=== PATIENT | female | born 1955 | race Caucasian/White ===

== ENCOUNTER → 2018-07-14 11:47 | Outpatient (CLI) | payer OTHER, SELFPAY | DX: Z23 Encounter for immunization (principal) | CPT/HCPCS: 90471; 90686 ==

== ENCOUNTER → 2018-09-26 07:36 | Outpatient (CLI) | payer OTHER, SELFPAY ==
--- NOTE | 2018-09-26 | DI.MG.S_ITS ---
BILATERAL DIGITAL SCREENING MAMMOGRAM 3D/2D WITH CAD: 09/26/2018 CLINICAL: Routine screening. Family history of breast cancer. Comparison is made to exams dated: 08/27/2017 mammogram, 05/18/2016 mammogram, and 10/29/2014 mammogram - [facility]. The tissue of both breasts is heterogeneously dense. This may lower the sensitivity of mammography. Current study was also evaluated with a Computer Aided Detection (CAD) system. There are benign vascular calcifications in both breasts. No significant masses, calcifications, or other findings are seen in either breast. There has been no significant interval change. IMPRESSION: There is no mammographic evidence of malignancy. A 1 year screening mammogram is recommended. This exam was interpreted at Station ID: [id number]. NOTE: For mammograms, a report in lay terms will be sent to the patient. Approximately 15% of breast malignancies will not be visualized mammographically. In the management of a palpable breast mass, a negative mammogram must not discourage biopsy of a clinically suspicious lesion. Electronically Signed By: Shan nelson/yolette:09/26/2018 12:00:12 letter sent: Normal Exam ACR BI-RADS Category 2: Benign Finding(s) 3342F
== END ==
PROVIDERS: PCP Family Medicine; Visit Provider Family Medicine
DX: Z12.31 Encounter for screening mammogram for malignant neoplasm of breast (principal); Z80.3 Family history of malignant neoplasm of breast
CPT/HCPCS: 77063; 77067

== ENCOUNTER → 2018-10-24 10:55 | Outpatient (CLI) | payer OTHER, SELFPAY ==
[2018-10-24 11:40] LABS: Add Manual Diff / Slide Review NO; Basophils Absolute Auto 100 /uL (0-100); Basophils Percent Auto 2.4 % (0-2); Eosinophils Absolute Auto 100 /uL (0-450); Eosinophils Percent Auto 2.4 % (2-4); Hematocrit 39.1 % (36-46); Hemoglobin 13.2 g/dL (12.0-16.0); Lymphocytes Absolute Auto 1700 /uL (1100-4500); Lymphocytes Percent Auto 35.8 % (25-40); Mean Corpuscular HGB Conc 33.8 % (30-36); Mean Corpuscular Hemoglobin 32.2 PG (26-34); Mean Corpuscular Volume 95.2 fL (80-100); Monocytes Absolute Auto 400 /uL (0-900); Monocytes Percent Auto 9.3 % (3-14); Neutrophils Absolute Auto 2300 /uL (1500-7000); Neutrophils Percent Auto 50.1 % (50-75); Platelet Count 303 X10^3/uL (150-400); Red Blood Cell Count 4.11 X10^6/uL (4.0-5.2); Red Cell Distribution Width 13.2 % (11.6-14.8); White Blood Cell Count 4.7 X10^3/uL (4.5-11.0)
[2018-10-24 11:55] LABS: Erythrocyte Sedimentation Rate 11 MM/HR (0-20)
[2018-10-24 11:57] LABS: Alanine Aminotransferase 30 IU/L (9-52); Albumin 4.4 g/dL (3.5-5.0); Albumin Globulin Ratio 1.4 (1.0-2.8); Alkaline Phosphatase 42 U/L (38-126); Aspartate Aminotransferase 26 IU/L (14-36); BUN Creatinine Ratio 22.5 (6-22); Bilirubin Total 0.6 mg/dL (0.2-1.3); Blood Urea Nitrogen 18 mg/dL (7-17); Calcium 9.2 mg/dL (8.4-10.2); Carbon Dioxide 28 mmol/L (22-32); Chloride 102 mmol/L (98-107); Cholesterol 249 mg/dL (140-199); Estimated Glomerular Filt Rate > 60.0 mL/min (>60); Globulin 3.1 g/dL (1.7-4.1); Glucose 83 mg/dL (80-110); HDL Cholesterol 69 mg/dL (40-60); HEMOLYSIS < 15 (0-50); LDL Cholesterol Calculated 166 mg/dL (<100); Potassium 4.3 mmol/L (3.4-5.1); Sodium 138 mmol/L (137-145); Total Protein 7.5 g/dL (6.3-8.2); Triglycerides 70 mg/dL (35-150)
[2018-10-24 12:05] LABS: Rheumatoid Factor < 8.6 IU/mL (<12.0)
--- NOTE | 2018-10-24 14:28 | DI.MRI.S_ITS ---
PROCEDURE: MR HEAD/BRAIN WO/W CON INDICATIONS: Right-sided facial weakness TECHNIQUE: Noncontrast sagittal T1 spin echo, axial T2 fast spin echo, axial FLAIR, axial gradient echo, axial diffusion and ADC through the brain. Axial/sagittal/coronal 3-D CISS, thin-slice axial T1 spin echo with fat saturation through the skull base. After the administration of contrast, axial and coronal thin-slice T1 spin echo with fat saturation through the skull base, axial T1 spin echo with fat saturation through the brain. COMPARISON: None. FINDINGS: Image quality: Excellent. CSF spaces: Ventricles are normal in size and shape. No extra-axial fluid collections. Basal cisterns are patent. Brain: No intracranial bleeds or mass effects. There is subtle although asymmetric enhancement seen in the region of the distal intra-meatal right facial nerve extending to the level of the geniculate ganglion however seen on thin section contrast-enhanced pulse sequences only. Scattered small white matter signal changes, probably represent chronic microvascular ischemic disease, versus statistically less likely demyelination or other infectious, inflammatory, neurodegenerative etiology, technically nonspecific. No abnormal intracranial enhancement. Diffusion weighted images show no acute ischemic insults. Carranza-white matter interface is intact. Brainstem is normal. Normal intravascular flow voids are present. Skull and face: Calvarial marrow signal is normal. Orbits appear normal. Sinuses: Sinuses and mastoids appear clear. IMPRESSION: Asymmetric enhancement in the region of the intra-meatal right facial nerve and extending to the geniculate ganglion, which could reflect Irwin's palsy although clinical correlation is recommended. Diffuse small white matter signal changes, probably represent chronic microvascular ischemic disease, versus statistically less likely demyelination or other infectious, inflammatory, neurodegenerative etiology, technically nonspecific. Dictated by: Sunil Davis M.D. on 10/24/2018 at 16:21 Approved by: Sunil Davis M.D. on 10/24/2018 at 16:43
[2018-10-26 12:12] LABS: RPR Screen Nonreactive (Nonreactive)
[2018-10-26 22:07] LABS: ANA Screen, IFA Negative (Negative)
[2018-10-27 13:42] LABS: Angiotensin Converting Enzyme 59 U/L (9-67)
[2018-10-27 17:00] LABS: 18 kD IgG Band Nonreactive; 23 kD IgG Band Nonreactive; 28 kD IgG Band Nonreactive; 30 kD IgG Band Reactive; 39 kD IgG Band Nonreactive; 41 kD IgG Bands Reactive; 45 kD IgG Band Nonreactive; 58 kD IgG Band Nonreactive; 66 kD IgG Band Nonreactive; 93 kD IgG Bands Nonreactive
[2018-10-27 20:08] LABS: Lysozyme (Muramidase) 4.4 mcg/mL (5.0-11.0)
[2018-10-28 16:56] LABS: EBV Virus IgM Ab < 36.00 U/mL (< 36.00)
[2018-10-30 19:32] LABS: ANCA Screen Negative (Negative)
== END ==
PROVIDERS: Ophthalmology; PCP Family Medicine; Visit Provider Family Medicine
DX: Z01.812 Encounter for preprocedural laboratory examination (principal); R29.810 Facial weakness
CPT/HCPCS: 36415; 70553; 80053; 80061; 82164; 85025; 85549; 85651; 86021; 86038; 86430; 86592; 86618; 86663; 86664; 86665; 86695; 86696

== ENCOUNTER → 2019-07-29 16:52 | Outpatient (CLI) | payer OTHER, SELFPAY | PROVIDERS: PCP Family Medicine | DX: Z23 Encounter for immunization (principal) | CPT/HCPCS: 90471; 90686 ==

== ENCOUNTER → 2019-09-29 11:02 | Outpatient (CLI) | payer OTHER, SELFPAY ==
--- NOTE | 2019-09-29 | DI.MG.S_ITS ---
BILATERAL DIGITAL SCREENING MAMMOGRAM 3D/2D WITH CAD: 09/29/2019 CLINICAL: Routine screening. Family history of breast cancer. Comparison is made to exams dated: 09/26/2018 mammogram, 08/27/2017 mammogram, and 05/18/2016 mammogram - [facility]. The tissue of both breasts is heterogeneously dense. This may lower the sensitivity of mammography. Current study was also evaluated with a Computer Aided Detection (CAD) system. There are benign vascular calcifications in both breasts. No significant masses, calcifications, or other findings are seen in either breast. There has been no significant interval change. IMPRESSION: There is no mammographic evidence of malignancy. A 1 year screening mammogram is recommended. This exam was interpreted at Station ID: [id number]. NOTE: For mammograms, a report in lay terms will be sent to the patient. Approximately 15% of breast malignancies will not be visualized mammographically. In the management of a palpable breast mass, a negative mammogram must not discourage biopsy of a clinically suspicious lesion. Electronically Signed By: Derrick santoyo/yolette:09/29/2019 14:51:45 letter sent: Normal Exam ACR BI-RADS Category 2: Benign Finding(s) 3342F
== END ==
PROVIDERS: PCP Family Medicine; Visit Provider Family Medicine
DX: Z12.31 Encounter for screening mammogram for malignant neoplasm of breast (principal); Z80.3 Family history of malignant neoplasm of breast
CPT/HCPCS: 77063; 77067

== ENCOUNTER 2020-02-17 07:31 | Emergency (ER) | payer OTHER, SELFPAY ==
--- NOTE | 2020-02-17 07:37 | ED_ITS ---
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 Patient denies any fevers, no shortness of breath or chest pain. Denies any current medical issues. Related Data Allergies Allergy/AdvReac Type Severity Reaction Status Date / Time No Known Drug Allergies Allergy Verified 02/17/20 07:41 Review of Systems Review of Systems ROS Unobtainable: All systems reviewed & are unremarkable except as noted in HPI and below Patient History Surgical History (Updated 02/04/18 @ 06:00 by Conversion Provider) Status post delivery Social History Smoking Status: Never smoker Smoking Status: Never smoker Exam Narrative Exam Narrative: GENERAL: Alert and oriented x three, well-nourished female in no acute distress HEENT: Head normocephalic, atraumatic, EOMI, pupils reactive, face symmetric. NECK: Supple, full range of motion CARDIOVASCULAR: Regular rate and rhythm without murmurs, rubs or gallops. RESPIRATORY: Breath sounds equal bilaterally, no wheezes rales or rhonchi. EXTREMITIES: Normal gait. NEUROLOGICAL: Cranial nerves II through XII grossly intact. Moving all extremities SKIN: Warm, dry, no petechiae, no rashes or lesions. Initial Vital Signs Initial Vital Signs: Vital Signs Temperature 97.6 F 02/17/20 07:39 Pulse Rate 64 02/17/20 07:39 Respiratory Rate 16 02/17/20 07:39 Blood Pressure 126/70 02/17/20 07:39 Pulse Oximetry 97 02/17/20 07:39 Course Vital Signs Vital signs: Vital Signs - 8 hr 02/17/20 07:39 Temperature 97.6 F Pulse Rate 64 Respiratory Rate 16 Blood Pressure 126/70 Pulse Oximetry 97 Medical Decision Making Lab Data Labs: Lab Results 02/17/20 Range/Units 07:45 COVID-19 PCR Negative (Negative) MDM Narrative Medical decision making narrative: rapid covid testing sent. Patient elects to wait in vehicle. Patient updated on findings. covid swab is negative. Discharge Plan Departure Patient Disposition: Home Clinical Impression: Cough Instructions: DI for COVID-19 (Suspected or Confirmed ) Activity Restrictions/Additional Instructions: *You have been diagnosed with suspicious for coronavirus *What to do: * per recommendations from the CDC and the [facility] Department of Health * stay home except to get medical care. Restrict activities outside your home, except for getting medical care. Do not go to work, school, or public areas. Avoid using public transportation, ride sharing, or taxis. * separate yourself from other people in your home. * call ahead before visiting your doctor * Wear a face mask * Cover your coughs and sneezes * Clean your hands often * Avoid sharing household items * Clean all high-touch services every day * Monitor your symptoms and seek prompt medical attention if your illness is worsening, particularly with difficulty in breathing. Discussed continuing home isolation * for individuals with symptoms who are confirmed or suspected cases of COVID-19 and are directed to care for themselves at home, discontinue home is olation under the following conditions: 1. At least 72 hours have passed since recovery, defined as resolution of fever without the use of fever reducing medications, and improvement in respiratory symptoms (cough, shortness of breath) AND, 2. At least 7 days have passed since symptoms 1st appeared Individuals with laboratory confirmed COVID-19 who have not had any symptoms may discontinue home isolation when at least 7 days have passed since the date of their 1st COVID-19 diagnostic test and have had no subsequent illness Referrals: Sandra Hassan MD [Primary Care Provider] -
[2020-02-17 07:39] VITALS: BP 126/70; PULSE 64; RESP 16; TEMP 36.4; O2SAT 97
--- NOTE | 2020-02-17 07:48 | PC.NURSE ---
Patient reports waking with a cough. Denies fevers, chills or SOB. Patient states normally she would take sudafed and carry on with her day but concerns of COVID19.
[2020-02-17 08:51] LABS: COVID19 -Nasal RAPID Negative (Negative)
== END 2020-02-17 09:02 | disposition home or self-care (01) ==
PROVIDERS: Emergency Provider Emergency Medicine; PCP Family Medicine
DX: Z03.818 Encounter for observation for suspected exposure to other biological agents ruled out (principal); R05 Cough
CPT/HCPCS: 87635; 99281; 99282

== ENCOUNTER 2020-07-04 12:32 | Emergency (ER) | payer OTHER, SELFPAY ==
[2020-07-04 12:33] VITALS: BP 112/76; PULSE 80; RESP 16; O2SAT 100
--- NOTE | 2020-07-04 12:54 | PC.NURSE ---
The patient was suturing a patient's skin and made a pass through the patience's skin and stuck herself with a contaminated needle through a clean glove. She was using a non-cannulated taper suture needle.
--- NOTE | 2020-07-04 12:55 | ED.GENADULT ---
HPI - General Adult General Chief complaint: Blood/Body fluid exposure Stated complaint: needle stick Time Seen by Provider: 07/04/20 12:36 Source: patient Mode of arrival: Ambulatory Limitations: no limitations History of Present Illness HPI narrative: Patient is a 64-year-old female who presents with a needlestick to the right thumb. She was suturing a patient. Immunizations are up-to-date Onset (ago): hour(s) Related Data Home Medications Medication Instructions Recorded Confirmed No Known Home Medications 06/07/20 06/07/20 Allergies Allergy/AdvReac Type Severity Reaction Status Date / Time No Known Drug Allergies Allergy Verified 07/04/20 12:35 Review of Systems Review of Systems Narrative: GENERAL: Denies chills,fever HEENT: Denies throat pain RESPIRATORY: Denies dyspnea, cough, wheezing CARDIOVASCULAR: Denies chest pain, palpitations GASTROINTESTINAL: Denies nausea, vomiting MUSCULOSKELETAL: Denies extremity pain, injury SKIN: See HPI NEUROLOGIC: Denies weakness, dizziness, headache, numbness 8 point review of systems is negative except for those stated above and HPI Patient History Medical History Acute right-sided thoracic back pain (Acute) Cervical somatic dysfunction (Acute) Chronic right-sided low back pain without sciatica (Acute) Cranial somatic dysfunction (Acute) Lumbar region somatic dysfunction (Acute) Pelvic somatic dysfunction (Acute) Rib pain on right side (Acute) Sacral region somatic dysfunction (Acute) Segmental and somatic dysfunction of abdomen and other regions (Acute) Segmental and somatic dysfunction of rib cage (Acute) Thoracic region somatic dysfunction (Acute) Surgical History Status post delivery Social History Smoking Status: Never smoker Smoking Status: Never smoker alcohol intake frequency: a few times a month Substance Use Type: does not use Exam Initial Vital Signs Initial Vital Signs: Vital Signs Pulse Rate 80 07/04/20 12:33 Respiratory Rate 16 07/04/20 12:33 Blood Pressure 112/76 07/04/20 12:33 Pulse Oximetry 100 07/04/20 12:33 GENERAL: Well-appearing, well-nourished and in no acute distress. CARDIOVASCULAR: peripheral pulses in tact, cap refill <2 sec RESPIRATORY: No respiratory distress, speaks in full sentences without difficulty EXTREMITIES: Normal range of motion, no clubbing or edema. Neurovascularly intact NEUROLOGICAL: Cranial nerves II through XII grossly intact. Normal gait and speech. SKIN: Warm, dry, no petechiae, no rashes or lesions. No puncture wound noted Course Vital Signs Vital signs: Vital Signs - 8 hr 07/04/20 12:33 Pulse Rate 80 Respiratory Rate 16 Blood Pressure 112/76 Pulse Oximetry 100 Medical Decision Making Lab Data Lab results reviewed: Yes I reviewed the patient's lab results. Labs: Lab Results 07/04/20 07/04/20 Range/Units 12:45 12:45 ALT 14 (<35) IU/L Hep Bs Antigen Negative (NEGATIVE) s/c Hepatitis C Antibody Negative (NEGATIVE) s/c HIV 1&2 Ab/P24 Ag 4thGn Negative (NEGATIVE) Discharge Plan Departure Patient Disposition: Home Clinical Impression: Needle stick injury of finger Discharge Date/Time: 07/04/20 12:57 Instructions: DI for Accidental Exposure to Body Fluids Activity Restrictions/Additional Instructions: *YOU HAVE BEEN DIAGNOSED WITH needlestick *CONTINUE TO TAKE MEDICATIONS DIRECTED *FOLLOW UP WITH YOUR PRIMARY CARE PROVIDER IN 2-3 DAYS *RETURN TO ER IF YOU SHOULD HAVE ANY NEW, WORSENING OR CONCERNING SYMPTOMS Prescriptions: No Action No Known Home Medications RF: 0 Referrals: Sandra Hassan MD [Primary Care Provider] -
[2020-07-04 13:00] LABS: Alanine Aminotransferase 14 IU/L (<35)
[2020-07-04 15:51] LABS: Hepatitis B Surface Antigen NEGATIVE s/c (NEGATIVE)
[2020-07-04 16:08] LABS: HIV 1 & 2 Ab/Ag 4th Gen Combo NEGATIVE (NEGATIVE); Hep C Virus Ab w/Reflex Quant NEGATIVE s/c (NEGATIVE)
[2020-07-05 07:39] LABS: Hepatitis B Surf Ab Qualitativ Reactive (.)
== END 2020-07-04 12:57 | disposition home or self-care (01) ==
PROVIDERS: Emergency Provider Emergency Medicine; PCP Family Medicine
DX: S61.031A Puncture wound without foreign body of right thumb without damage to nail, initial encounter (principal); W46.0XXA Contact with hypodermic needle, initial encounter; Y99.0 Civilian activity done for income or pay
CPT/HCPCS: 99281

== ENCOUNTER → 2020-08-04 04:26 | Outpatient (CLI) | payer OTHER, SELFPAY | PROVIDERS: PCP Family Medicine; Referring Provider Internal Medicine; Visit Provider Internal Medicine | DX: Z23 Encounter for immunization (principal) | CPT/HCPCS: 90471; 90686 ==

== ENCOUNTER → 2020-10-14 13:30 | Outpatient (CLI) | payer OTHER, SELFPAY ==
[2020-10-14] MEDS: COVID-19 VACC(MODERNA-1)/PF 100 MCG/0.5 ML VIAL IM (13:40)
== END ==
PROVIDERS: PCP Family Medicine; Visit Provider Internal Medicine
DX: Z23 Encounter for immunization (principal)
CPT/HCPCS: 0011A; 91301

== ENCOUNTER → 2020-10-27 17:47 | Outpatient (CLI) | payer OTHER, SELFPAY ==
--- NOTE | 2020-10-27 17:48 | DI.MG.S_ITS ---
BILATERAL DIGITAL SCREENING MAMMOGRAM 3D/2D WITH CAD: 10/27/2020 CLINICAL: Routine screening. Family history of breast cancer. Comparison is made to exams dated: 09/29/2019 mammogram, 09/26/2018 mammogram, and 08/27/2017 mammogram - [facility]. The tissue of both breasts is heterogeneously dense. This may lower the sensitivity of mammography. Current study was also evaluated with a Computer Aided Detection (CAD) system. There are benign vascular calcifications in both breasts. No significant masses, calcifications, or other findings are seen in either breast. There has been no significant interval change. IMPRESSION: BENIGN There is no mammographic evidence of malignancy. A 1 year screening mammogram is recommended. This exam was interpreted at Station ID: [id number]. NOTE: For mammograms, a report in lay terms will be sent to the patient. Approximately 15% of breast malignancies will not be visualized mammographically. In the management of a palpable breast mass, a negative mammogram must not discourage biopsy of a clinically suspicious lesion. Electronically Signed By: Derrick santoyo/yolette:10/28/2020 08:33:40 letter sent: Normal Exam ACR BI-RADS Category 2: Benign Finding(s) 3342F
== END ==
PROVIDERS: PCP Family Medicine; Referring Provider Family Medicine; Visit Provider Family Medicine
DX: Z12.31 Encounter for screening mammogram for malignant neoplasm of breast (principal); Z80.3 Family history of malignant neoplasm of breast
CPT/HCPCS: 77063; 77067

== ENCOUNTER → 2020-11-10 16:37 | Outpatient (CLI) | payer OTHER, SELFPAY ==
[2020-11-10] MEDS: COVID-19 VACC #2, MRNA(MOD) 100 MCG/0.5 ML VIAL IM (16:46)
== END ==
PROVIDERS: PCP Family Medicine; Visit Provider Internal Medicine
DX: Z23 Encounter for immunization (principal)
CPT/HCPCS: 0012A; 91301

== ENCOUNTER → 2021-07-21 | Outpatient (CLI) | payer OTHER, SELFPAY | PROVIDERS: PCP Family Medicine; Referring Provider Internal Medicine; Visit Provider Internal Medicine | DX: Z23 Encounter for immunization (principal) | CPT/HCPCS: 90471; 90662 ==

== ENCOUNTER → 2021-08-11 12:59 | Outpatient (CLI) | payer OTHER, SELFPAY ==
[2021-08-11] MEDS: COVID-19 VACC #3, MRNA(MOD) 50 MCG/0.25 ML VIAL IM (13:04)
== END ==
PROVIDERS: PCP Family Medicine; Visit Provider Internal Medicine
DX: Z23 Encounter for immunization (principal)
CPT/HCPCS: 0013A; 91301

== ENCOUNTER → 2021-09-20 08:03 | Outpatient (CLI) | payer OTHER, SELFPAY ==
--- NOTE | 2021-10-09 08:46 | PM.CARDMON.1 ---
Adjunct Physical Education Instructor Report Referral & Results Date Patient Seen: 09/20/21 Requesting provider: Sandra Hassan Indication: Palpitations Duration of monitoring (days): 7 Diary information: There were 6 patient triggered events and 0 patient diary entries Patient triggered events were associated variably with sinus rhythm, PACs, PVCs, ventricular bigeminy and SVT Data: Minimum heart rate identified was 44 beats per minute at 22:49 on 09/25/2021 Maximum sinus heart rate was 154 beats per minute at 16:11 on 09/23/2021 Maximum overall heart rate was 182 beats per minute at 07:44 on 09/25/2021 during a run of SVT There were 2 runs of nonsustained monomorphic ventricular tachycardia the fastest being 8 beats at a rate of 150 beats per minute the fastest also being the longest run. There were 15 runs of SVT the fastest being 6 beats at a rate of 182 beats per minute the longest lasting 19 beats at a rate of 119 beats per minute which suggest more atrial tachycardia than true SVT Less than 1% of identified beats were ventricular or supraventricular ectopic in origin, which would classify them as rare, including a 1 minute 2nd run of ventricular bigeminy Impression: 7 day manager wholesale demonstrating rare runs of ventricular tachycardia as above as well as rare supraventricular tachycardia that was very brief in duration. Clinical correlation suggested
== END ==
PROVIDERS: PCP Family Medicine; Referring Provider Family Medicine; Visit Provider Family Medicine
DX: R00.2 Palpitations (principal)
CPT/HCPCS: 93242; 93244

== ENCOUNTER → 2021-11-08 15:52 | Outpatient (CLI) | payer MEDICARE, SELFPAY, OTHER ==
--- NOTE | 2021-11-08 15:54 | DI.MG.S_ITS ---
BILATERAL DIGITAL SCREENING MAMMOGRAM 3D/2D WITH CAD: 11/08/2021 CLINICAL: Routine screening. Family history of breast cancer. Comparison is made to exams dated: 10/27/2020 mammogram, 09/29/2019 mammogram, and 09/26/2018 mammogram - [facility]. The tissue of both breasts is heterogeneously dense. This may lower the sensitivity of mammography. Current study was also evaluated with a Computer Aided Detection (CAD) system. There are benign vascular calcifications in both breasts. No significant masses, calcifications, or other findings are seen in either breast. There has been no significant interval change. IMPRESSION: BENIGN There is no mammographic evidence of malignancy. A 1 year screening mammogram is recommended. This exam was interpreted at Station ID: [id number]. NOTE: For mammograms, a report in lay terms will be sent to the patient. Approximately 15% of breast malignancies will not be visualized mammographically. In the management of a palpable breast mass, a negative mammogram must not discourage biopsy of a clinically suspicious lesion. Electronically Signed By: Manuel faulkner/yolette:11/09/2021 08:25:12 letter sent: Normal Exam ACR BI-RADS Category 2: Benign Finding(s) 3342F
== END ==
PROVIDERS: PCP Family Medicine; Referring Provider Family Medicine; Visit Provider Family Medicine
DX: Z12.31 Encounter for screening mammogram for malignant neoplasm of breast (principal); Z80.3 Family history of malignant neoplasm of breast
CPT/HCPCS: 77063; 77067

== ENCOUNTER → 2021-11-09 07:48 | Outpatient (CLI) | payer MEDICARE, SELFPAY, OTHER ==
--- NOTE | 2021-11-09 09:11 | DI.ECHO.S_ITS ---
[place] [facility]---------+ [facility] +---------+ : : [address] : : : : [id number] : : : : Phone: [phone]+ Echocardiogram Report + + :Name: JOSEPH GARCIA Study Date: 11/09/2021 Height: 62 in : :[facility] ReadingLocation: Weight: 140 lb : : Gender: Female BSA: 1.6 m2 : :: 1955 Age: 66 yrs BP: 120/76 mmHg: :Reason For Study: Superventricular tachycardia : :Ordering Physician: Dr. Flores : :Mo Performed By: Iain Hancock : :Referring: Dr. Sandra Hassan : + + Interpretation Summary Sinus bradycardia with heart rate 47-54 bpm. Normal LV size, wall thickness, wall motion and LV systolic function. EF is 55-60% Moderate biatrial enlargement. No significant valvular abnormalities. Compared to prior study dated 01/2015, LA volume index fell from 54 to 44 ml/m2. LA and RA enlargement fell from severely dilated to moderately dilated. Procedure: A two-dimensional transthoracic echocardiogram with color flow and Doppler was performed. The study quality was technically adequate. Comparison is made with the echocardiogram of 01/07/2015. The patient was in normal sinus rhythm during the exam. Left Ventricle: The left ventricle is normal in size and wall thickness. The ejection fraction is estimated to be 55-60%. Right Ventricle: The right ventricle is normal in size and function. Atria: The left atrium is moderately dilated. The right atrium is moderately dilated. There is no Doppler evidence for an interatrial shunt. Mitral Valve: The mitral valve is normal. There is mild mitral regurgitation. Aortic Valve: The aortic valve is trileaflet. The aortic valve opens well. No aortic regurgitation is present. Tricuspid Valve: The tricuspid valve is normal. There is mild tricuspid regurgitation. The right ventricular systolic pressure is estimated to be at least 24 mmHg based on an estimated right atrial pressure of 3 mm Hg. Pulmonic Valve: The pulmonic valve leaflets are thin and pliable; valve motion is normal. There is a trace or physiologic amount of pulmonic regurgitation. Great Vessels: The aortic root is normal size. The ascending aorta is normal in size. The aortic arch is normal in size. The IVC is of normal diameter and collapses greater than 50% with a sniff. This suggests a low right atrial pressure of 3 mm Hg. Pericardium/ Pleura There is no pericardial effusion. There is an anterior echo-free space consistent with a fat pad. There is no pleural effusion. MMode/2D Measurements & Calculations LVIDd: 4.7 cm LVOT diam: 2.0 cm LVIDs: 3.2 cm Ao root diam: 3.2 cm FS: 31.9 % asc Aorta Diam: 3.3 cm IVSd: 0.80 cm Ao Arch Diam (Prox Trans): 2.2 cm LVPWd: 0.80 cm LV stephens. diameter/BSA (cm/m^2): 2.9 LV sys. diameter/BSA (cm/m^2): 2.0 LA A2 area: 22.9 cm2 RA long axis: 5.8 cm LA A4 area: 22.0 cm2 IVC diam: 1.5 cm LA length (vol): 5.9 cm LA vol: 72.5 ml LA vol index: 44.2 ml/m2 TAPSE_phl: 2.4 cm Doppler Measurements & Calculations Ao V2 max: 139.0 cm/sec LVOT Max Joshua: 94.6 cm/sec Ao V2 mean: 98.2 cm/sec LV V1 max P.6 mmHg Ao max P.0 mmHg LV V1 VTI: 23.1 cm Ao mean P.0 mmHg SWAPNA(I,D): 2.1 cm2 Ao V2 VTI: 34.1 cm SWAPNA(V,D): 2.1 cm2 sev ratio: 0.68 SWAPNA indexed to BSA (cm^2/m^2): 1.3 MV E max joshua: 72.0 cm/sec TR max joshua: 226.7 cm/sec MV A max joshua: 39.8 cm/sec TR max P.6 mmHg MV E/A: 1.8 PA V2 max: 64.6 cm/sec Med Peak E' Joshua: 9.0 cm/sec PA V2 mean: 48.4 cm/sec E/E' med: 8.0 PA mean P.0 mmHg Lat Peak E' Joshua: 11.7 cm/sec PA pr(Accel): -2.0 mmHg E/E' lat: 6.2 E/e' average: 7.1 MV dec time: 0.28 sec SV(LVOT): 72.6 ml AV VR_phl: 0.68 SWAPNA(VTI)/BSA_phl: 1.3 MV P1/2t-pr_phl: 81.0 msec Electronically signed by: Sadia Rinaldi M.D. on Reading Physician:11/09/2021 07:37 PM
== END ==
PROVIDERS: PCP Family Medicine; Referring Provider Family Medicine; Visit Provider Family Medicine
DX: I08.1 Rheumatic disorders of both mitral and tricuspid valves (principal); I47.1 Supraventricular tachycardia
CPT/HCPCS: 93306

== ENCOUNTER → 2023-01-25 10:08 | Outpatient (CLI) | payer MEDICARE, OTHER, SELFPAY ==
--- NOTE | 2023-01-25 | DI.MG.S_ITS ---
BILATERAL DIGITAL SCREENING MAMMOGRAM 3D/2D WITH CAD: 01/25/2023 CLINICAL: Routine screening. Family history of breast cancer. Comparison is made to exams dated: 11/08/2021 mammogram, 10/27/2020 mammogram, and 09/29/2019 mammogram - [facility]. Both breasts are heterogeneously dense, which may obscure small masses (category c / 51-75% glandular tissue). Current study was also evaluated with a Computer Aided Detection (CAD) system. There are benign vascular calcifications in both breasts. There are grouped calcifications in the left breast central to the nipple middle depth. These are increased in number. No other significant masses, calcifications, or other findings are seen in either breast. IMPRESSION: INCOMPLETE: NEEDS ADDITIONAL IMAGING EVALUATION The grouped calcifications in the left breast are indeterminate. Spot magnification views are recommended. Based on the Tyrer Cuzick model (a risk assessment model) the patient's lifetime risk is 14.6% and her 10 year risk is 7.8%. According to the ACR, ACS, and NCCN guidelines, an annual breast MRI exam along with mammogram is recommended if the patient's lifetime risk is 20% or greater. This exam was interpreted at Station ID: [id number]. NOTE: For mammograms, a report in lay terms will be sent to the patient. Approximately 15% of breast malignancies will not be visualized mammographically. In the management of a palpable breast mass, a negative mammogram must not discourage biopsy of a clinically suspicious lesion. Electronically Signed By: Tawny guerrier/:01/25/2023 12:35:15 letter sent: Additional Imaging Needed ACR BI-RADS Category 0: Incomplete 3340F
--- NOTE | 2023-01-25 10:35 | DI.DEXA.S_ITS ---
Bone Density Report Name: JOSEPH GARCIA Age: 67 Sex: Female Ethnicity: White Date of : 1955 Indication: postmenopausal; screening for osteoporosis; Referring Provider: HORACE GRAY Study: Bone densitometry was performed. Exam Date: January 25, 2023 Accession number: [id number] Bone Density: Region BMD T-score Z-score Classification AP Spine(L1-L4) 1.013 -0.3 1.6 Normal Femoral Neck (Left) 0.663 -1.7 0.0 Osteopenia Total Hip (Left) 0.805 -1.1 0.2 Osteopenia Femoral Neck (Right) 0.673 -1.6 0.1 Osteopenia Total Hip (Right) 0.806 -1.1 0.2 Osteopenia Total Hip Mean 0.806 -1.1 0.2 Osteopenia World Health Organization criteria for BMD impression classify patients as: Normal (T-score at or above -1.0), Osteopenia (T-score between -1.0 and -2.5), or Osteoporosis (T-score at or below -2.5). 10-year Fracture Risk(1): Major Osteoporotic Fracture 9.6% Hip Fracture 1.3% Reported Risk Factors: [place] (), Neck BMD=0.663, BMI=23.8 (1) FRAX(R) Version 3.08. Fracture probability calculated for an untreated patient. Fracture probability may be lower if the patient has received treatment. Previous Exams: -- Region Exam Age BMD T-score BMD Change BMD Change Date g/cm2 vs Baseline vs Previous -- AP Spine (L1-L4) 01/25/2023 67 1.013 -0.3 -0.048 (-4.5%)# -0.048 (-4.5%)# 11/26/2017 62 1.061 0.1 Total Hip(Left) 01/25/2023 67 0.805 -1.1 -0.035 (-4.2%)# -0.035 (-4.2%)# 11/26/2017 62 0.840 -0.8 Total Hip(Right) 01/25/2023 67 0.806 -1.1 -0.050 (-5.8%)# -0.050 (-5.8%)# 11/26/2017 62 0.856 -0.7 -- *Denotes significance at 95% confidence level, LSC for AP Spine = 0.022 g/cm2, LSC for Total Hip = 0.027 g/cm2 # Denotes dissimilar scan types or analysis methods Impression: The patient has low bone mass, based on the Left Femoral Neck T-score. The patient has an estimated ten-year risk of hip fracture of 1.3% and an estimated ten-year risk of major fracture of 9.6%, based on the WHO FRAX algorithm. No significant bone loss was observed. Discussion: BONE DENSITY IS LOW AT ONE OR MORE SKELETAL SITES. This patient's lowest T-score is low at one or more skeletal sites. It meets the World Health Organization's (WHO) criteria for ?low bone mass? (T-score between -1.0 and -2.5). The patient's 10-year risk of fracture as calculated by FRAX is less than the threshold where pharmacological therapy is recommended by the National Osteoporosis Foundation (NOF). However, all treatment decisions require clinical judgment and consideration of individual patient factors, including patient preferences, comorbidities, previous drug use, risk factors not captured in the FRAX model (e.g., frailty, falls, vitamin D deficiency, increased bone turnover, interval significant decline in bone density) and possible under or overestimation of fracture risk by FRAX. The patient should follow a healthful lifestyle (good nutrition with adequate calcium and vitamin D, and appropriate weight-bearing exercise). Follow-Up: Consider repeating this study in 2 to 3 years to reassess this patient's status, or sooner if there is some new clinical indication. Reported by: JASPAL BANERJEE M.D. on 01/25/2023 10:43:00 AM.
== END ==
PROVIDERS: PCP Family Medicine; Referring Provider Family Medicine; Visit Provider Family Medicine
DX: M85.852 Other specified disorders of bone density and structure, left thigh (principal); Z12.31 Encounter for screening mammogram for malignant neoplasm of breast; Z80.3 Family history of malignant neoplasm of breast; Z13.820 Encounter for screening for osteoporosis; Z78.0 Asymptomatic menopausal state
CPT/HCPCS: 77063; 77067; 77080

== ENCOUNTER → 2023-02-06 09:42 | Outpatient (CLI) | payer MEDICARE, OTHER, SELFPAY ==
--- NOTE | 2023-02-06 09:46 | DI.MG.S_ITS ---
UNILATERAL LEFT DIGITAL DIAGNOSTIC MAMMOGRAM 3D/2D WITH ADDITIONAL VIEWS: 02/06/2023 CLINICAL: Additional evaluation requested from prior study. Comparison is made to exams dated: 01/25/2023 mammogram, 11/08/2021 mammogram, and 10/27/2020 mammogram - [facility]. The left breast is heterogeneously dense, which may obscure small masses (category c / 51-75% glandular tissue). There are grouped calcifications in the left breast central to the nipple middle depth. These are seen in additional views. These are increased in number. No other significant masses or calcifications are seen in the breast. IMPRESSION: SUSPICIOUS OF MALIGNANCY The grouped calcifications in the left breast are at a low suspicion for malignancy. A stereotactic biopsy is recommended. Based on the Tyrer Cuzick model (a risk assessment model) the patient's lifetime risk is 14.6% and her 10 year risk is 7.8%. According to the ACR, ACS, and NCCN guidelines, an annual breast MRI exam along with mammogram is recommended if the patient's lifetime risk is 20% or greater. This exam was interpreted at Station ID: [id number]. NOTE: For mammograms, a report in lay terms will be sent to the patient. Approximately 15% of breast malignancies will not be visualized mammographically. In the management of a palpable breast mass, a negative mammogram must not discourage biopsy of a clinically suspicious lesion. Electronically Signed By: Joseph redman/yolette:02/06/2023 10:12:19 letter sent: Biopsy Required ACR BI-RADS Category 4a: Suspicious abnormality - low suspicion for malignancy 3344F
== END ==
PROVIDERS: PCP Family Medicine; Referring Provider Family Medicine; Visit Provider Family Medicine
DX: R92.8 Other abnormal and inconclusive findings on diagnostic imaging of breast (principal); R92.1 Mammographic calcification found on diagnostic imaging of breast
CPT/HCPCS: 77065; G0279

== ENCOUNTER → 2023-07-22 11:42 | Outpatient (CLI) | payer MEDICARE, OTHER, SELFPAY | PROVIDERS: PCP Family Medicine; Referring Provider Family Medicine; Visit Provider Family Medicine | DX: Z23 Encounter for immunization (principal) | CPT/HCPCS: 90471; 90686 ==

== ENCOUNTER → 2024-02-07 17:54 | Outpatient (CLI) | payer MEDICARE, OTHER, SELFPAY ==
--- NOTE | 2024-02-07 17:56 | DI.MG.S_ITS ---
BILATERAL DIGITAL SCREENING MAMMOGRAM 3D/2D WITH CAD: 02/07/2024 CLINICAL: Routine screening. Family history of breast cancer. Comparison is made to exams dated: 01/25/2023 mammogram, 11/08/2021 mammogram, and 10/27/2020 mammogram - [facility]. Both breasts are heterogeneously dense, which may obscure small masses (category c / 51-75% glandular tissue). Current study was also evaluated with a Computer Aided Detection (CAD) system. There are benign calcifications in both breasts. There also is a biopsy clip in the left breast. No significant masses, calcifications, or other findings are seen in either breast. There has been no significant interval change. IMPRESSION: BENIGN There is no mammographic evidence of malignancy. A 1 year screening mammogram is recommended. Based on the Tyrer Cuzick model (a risk assessment model) the patient's lifetime risk is 13.9% and her 10 year risk is 7.8%. According to the ACR, ACS, and NCCN guidelines, an annual breast MRI exam along with mammogram is recommended if the patient's lifetime risk is 20% or greater. This exam was interpreted at Station ID: [id number]. NOTE: For mammograms, a report in lay terms will be sent to the patient. Approximately 15% of breast malignancies will not be visualized mammographically. In the management of a palpable breast mass, a negative mammogram must not discourage biopsy of a clinically suspicious lesion. Electronically Signed By: Manuel faulkner/yolette:02/08/2024 12:14:36 letter sent: Normal Exam ACR BI-RADS Category 2: Benign Finding(s) 3342F
== END ==
PROVIDERS: PCP Family Medicine; Referring Provider Family Medicine; Visit Provider Family Medicine
DX: Z12.31 Encounter for screening mammogram for malignant neoplasm of breast (principal); R92.30 Dense breasts, unspecified; Z80.3 Family history of malignant neoplasm of breast
CPT/HCPCS: 77063; 77067

== ENCOUNTER → 2024-05-22 12:02 | Outpatient (CLI) | payer MEDICARE, OTHER, SELFPAY ==
--- NOTE | 2024-05-22 12:06 | DI.RAD.S_ITS ---
PROCEDURE: XR LUMBAR SPINE 2-3V INDICATIONS: PAIN TECHNIQUE: 3 views of the lumbar spine were acquired. COMPARISON: None. FINDINGS: Bones: 5 [id number] vertebrae are present. Straightening of the normal lumbar lordosis. Mild anterolisthesis of L2 on L3, L3 on L4. No vertebral body compression fractures. No suspicious bony lesions. There is multilevel facet arthropathy, worse at L4-5 and L5-S1. Multilevel disc height loss with degenerative endplate changes and spurring is present. This is most pronounced at L5-S1. Soft tissues: Overlying bowel gas pattern is normal. No suspicious soft tissue calcifications. IMPRESSION: Multilevel degenerative changes of the lumbar spine, most pronounced at L5-S1. Dictated by: Angelo Walsh M.D. on 05/22/2024 at 16:56 Approved by: Angelo Walsh M.D. on 05/22/2024 at 16:57
--- NOTE | 2024-05-22 12:06 | DI.RAD.S_ITS ---
PROCEDURE: XR HIP W PEL IF DONE RT 2V INDICATIONS: PAIN TECHNIQUE: AP pelvis with lateral view(s) of the right hip(s). COMPARISON: None. FINDINGS: Bones: No fractures or dislocations. Mild bilateral hip joint degeneration with joint space narrowing and spurring. Pelvic ring appears intact. No suspicious bony lesions. Soft tissues: The visualized bowel gas pattern is normal. No suspicious soft tissue calcifications. IMPRESSION: Mild bilateral hip joint degeneration. No acute osseous abnormalities. Dictated by: Angelo Walsh M.D. on 05/22/2024 at 16:56 Approved by: Angelo Walsh M.D. on 05/22/2024 at 16:56
== END ==
LOC: RAD 12:04
PROVIDERS: PCP Family Medicine; Referring Provider Family Medicine; Visit Provider Family Medicine
DX: M47.816 Spondylosis without myelopathy or radiculopathy, lumbar region (principal); M47.817 Spondylosis without myelopathy or radiculopathy, lumbosacral region; M16.0 Bilateral primary osteoarthritis of hip; M54.50 Low back pain, unspecified; M25.551 Pain in right hip; M79.604 Pain in right leg
CPT/HCPCS: 72100; 73502

== ENCOUNTER → 2024-11-12 11:36 | Outpatient (CLI) | payer MEDICARE, OTHER, SELFPAY ==
[2024-11-12 12:52] LABS: Add Manual Diff / Slide Review NO; Basophils Absolute Auto 100 /uL (0-100); Basophils Percent Auto 2.4 % (0-2); Eosinophils Absolute Auto 100 /uL (0-450); Eosinophils Percent Auto 2.9 % (2-4); Hematocrit 41.2 % (36-46); Hemoglobin 13.9 g/dL (12.0-16.0); Lymphocytes Absolute Auto 2100 /uL (1100-4500); Lymphocytes Percent Auto 45.7 % (25-40); Mean Corpuscular HGB Conc 33.7 % (30-36); Mean Corpuscular Hemoglobin 32.4 PG (26-34); Monocytes Absolute Auto 500 /uL (0-900); Monocytes Percent Auto 10.4 % (3-14); Neutrophils Absolute Auto 1800 /uL (1500-7000); Neutrophils Percent Auto 38.6 % (50-75); Platelet Count 289 X10^3/uL (150-400); Red Blood Cell Count 4.29 X10^6/uL (4.0-5.2); Red Cell Distribution Width 13.8 % (11.6-14.8); White Blood Cell Count 4.6 X10^3/uL (4.5-11.0)
[2024-11-12 13:12] LABS: Alanine Aminotransferase 21 IU/L (<35); Albumin 4.7 g/dL (3.5-5.0); Albumin Globulin Ratio 1.5 (1.0-2.8); Alkaline Phosphatase 48 U/L (38-126); Aspartate Aminotransferase 34 IU/L (14-36); BUN Creatinine Ratio 14.8 (6-22); Bilirubin Total 0.9 mg/dL (0.2-1.3); Blood Urea Nitrogen 12 mg/dL (7-17); Calcium 9.6 mg/dL (8.4-10.2); Carbon Dioxide 27 mmol/L (22-32); Chloride 101 mmol/L (98-107); Cholesterol 225 mg/dL (140-199); Creatine Kinase 77 U/L (30-135); Estimated Glomerular Filt Rate > 60 mL/min (>60); Globulin 3.2 g/dL (1.7-4.1); Glucose 96 mg/dL (80-110); HDL Cholesterol 77 mg/dL (40-60); HEMOLYSIS < 15 (0-50); LDL Cholesterol Calculated 133 mg/dL (<100); Potassium 4.2 mmol/L (3.4-5.1); Sodium 137 mmol/L (137-145); Total Protein 7.9 g/dL (6.3-8.2); Triglycerides 73 mg/dL (35-150)
[2024-11-12 14:08] LABS: Thyroid Stimulating Hormone 1.63 uIU/mL (0.47-4.68)
[2024-11-12 14:28] LABS: Vitamin B12 567 pg/mL (239-931)
== END ==
PROVIDERS: PCP Family Medicine; Referring Provider Family Medicine; Visit Provider Family Medicine
DX: Z00.00 Encounter for general adult medical examination without abnormal findings (principal); Z79.890 Hormone replacement therapy; I47.10 Supraventricular tachycardia, unspecified; E78.00 Pure hypercholesterolemia, unspecified; R00.2 Palpitations; I47.20 Ventricular tachycardia, unspecified; I07.1 Rheumatic tricuspid insufficiency; Z13.0 Encounter for screening for diseases of the blood and blood-forming organs and certain disorders involving the immune mechanism
CPT/HCPCS: 36415; 80053; 80061; 82550; 82607; 83735; 84443; 85025

== ENCOUNTER → 2024-12-14 08:07 | Outpatient (CLI) | payer MEDICARE, OTHER, SELFPAY ==
--- NOTE | 2024-12-14 08:08 | DI.ECHO.S_ITS ---
[facility] : : [id number] : [place] : : [id number] : : Phone: [phone] Echocardiogram Report + + :Name: JOSEPH GARCIA Study Date: 12/14/2024 Height: 62 in : :[facility] ReadingLocation: Weight: 135 lb : : Gender: Female BSA: 1.6 m2 : :: 1955 Age: 69 yrs BP: 116/86 mmHg: :Reason For Study: PALPITATIONS : :Ordering Physician: ISAAC, : :HORACE Performed By: Rah Vasquez : :Referring: HORACE GRAY : + + Interpretation Summary Normal left ventricle size with ejection fraction 55-60%. Moderate biatrial enlargement. Mild mitral regurgitation. Mild tricuspid regurgitation. The right ventricular systolic pressure is estimated to be at least 34 mmHg based on an estimated right atrial pressure of 3 mm Hg. Comparison is made with the echocardiogram of 11/09/2021, no significant change. Procedure: A two-dimensional transthoracic echocardiogram with color flow and Doppler was performed. The study quality was technically good. Comparison is made with the echocardiogram of 11/09/2021. The patient was in normal sinus rhythm during the exam. Left Ventricle: The left ventricle is normal in size. There is normal left ventricular wall thickness. There is no ventricular septal defect visualized. The ejection fraction is estimated to be 55-60%. There are no focal wall motion abnormalities. Diastolic parameters suggest probable normal left ventricular diastolic function and normal filling pressures. Right Ventricle: The right ventricle is normal in size and function. Atria: There is moderate biatrial enlargement. There is no Doppler evidence for an atrial septal defect. Mitral Valve: The mitral valve is normal in structure and function. There is mild mitral regurgitation. Aortic Valve: The aortic valve is trileaflet. The aortic valve opens well. No aortic regurgitation is present. Tricuspid Valve: The tricuspid valve leaflets are thin and pliable. There is mild tricuspid regurgitation. The right ventricular systolic pressure is estimated to be at least 34 mmHg based on an estimated right atrial pressure of 3 mm Hg. Pulmonic Valve: The pulmonic valve is not well visualized. There is trace pulmonic regurgitation. Great Vessels: The aortic root is normal size. The dimensions of the ascending aorta are normal. The pulmonary is not well visualized. The IVC is of normal diameter and collapses greater than 50% with a sniff. This suggests a low right atrial pressure of 3 mm Hg. Pericardium/ Pleura There is no pericardial effusion. There is no pleural effusion. MMode/2D Measurements & Calculations LVIDd: 4.9 cm LVOT diam: 2.2 cm LVIDs: 3.6 cm Ao root diam: 3.1 cm FS: 26.4 % asc Aorta Diam: 3.5 cm EPSS: 0.81 cm Ao Arch Diam (Prox Trans): 2.0 cm IVSd: 0.80 cm LVPWd: 0.81 cm LV stephens. diameter/BSA (cm/m^2): 3.0 LV sys. diameter/BSA (cm/m^2): 2.2 LA A2 area: 24.0 cm2 RA long axis: 5.5 cm LA A4 area: 18.5 cm2 RA area: 20.7 cm2 LA length (vol): 5.2 cm RA vol: 66.4 ml LA vol: 72.2 ml RA : 41.1 ml/m2 LA vol index: 44.6 ml/m2 IVC diam: 1.7 cm RVD1 (basal): 4.0 cm RVD2 (mid): 3.0 cm TAPSE: 2.9 cm Doppler Measurements & Calculations Ao V2 max: 133.0 cm/sec LVOT Max Joshua: 79.1 cm/sec Ao V2 mean: 93.3 cm/sec LV V1 max P.5 mmHg Ao max P.1 mmHg LV V1 VTI: 20.5 cm Ao mean P.8 mmHg SWAPNA(I,D): 2.3 cm2 Ao V2 VTI: 33.0 cm SWAPNA(V,D): 2.2 cm2 sev ratio: 0.62 SWAPNA indexed to BSA (cm^2/m^2): 1.4 MV E max joshua: 58.9 cm/sec TR max joshua: 276.8 cm/sec MV A max joshua: 35.0 cm/sec TR max P.6 mmHg MV E/A: 1.7 PA V2 max: 65.5 cm/sec Med Peak E' Joshua: 7.5 cm/sec PA V2 mean: 46.8 cm/sec E/E' med: 7.8 PA mean P.97 mmHg Lat Peak E' Joshua: 8.9 cm/sec PA pr(Accel): 17.3 mmHg E/E' lat: 6.6 E/e' average: 7.2 MV dec time: 0.17 sec SVLVOT): 76.5 ml Electronically signed by: Eli Miller on Reading Physician:12/14/2024 10:26 PM
== END ==
PROVIDERS: PCP Family Medicine; Referring Provider Family Medicine; Visit Provider Family Medicine
DX: I08.1 Rheumatic disorders of both mitral and tricuspid valves (principal); R00.2 Palpitations; I47.10 Supraventricular tachycardia, unspecified; I47.20 Ventricular tachycardia, unspecified
CPT/HCPCS: 93306

== ENCOUNTER → 2025-02-17 15:14 | Outpatient (CLI) | payer MEDICARE, OTHER, SELFPAY ==
--- NOTE | 2025-02-17 15:19 | DI.MG.S_ITS ---
MM screening mammo BI: 02/17/2025. BI-RADS: 2 CLINICAL: 69-year old female for bilateral screening mammogram. Tyrer-Cuzick lifetime risk of 12.0%. Current reported family history of breast cancer: mother and paternal aunt. The patient had a prior left breast biopsy. PRIOR EXAMS 02/07/2024, 02/13/2023, 02/06/2023, 01/25/2023, 11/08/2021, 10/27/2020, 09/29/2019, 09/26/2018, 02/04/2018, 08/27/2017, 02/19/2017, 08/23/2016, 05/23/2016, 05/18/2016. MAMMOGRAPHY TECHNIQUE: 2D and 3D (tomosynthesis) digital mammographic views obtained, with additional images as needed for full coverage. Current study was also evaluated with a Computer Aided Detection (CAD) system. DENSITY C. The breasts are heterogeneously dense, which may obscure small masses. MAMMOGRAPHY FINDINGS Right: No suspicious mass, asymmetry, microcalcification, or other abnormality seen. Left: Biopsy marker present on the left. There are no suspicious masses, calcifications, or other findings in the breast. IMPRESSION: Right * No evidence of malignancy. Left * No evidence of malignancy with benign findings. RECOMMENDATIONS Bilateral * Annual screening mammography. OVERALL ASSESSMENT CATEGORY BI-RADS-2: Benign. The [employer] recommends annual screening mammography beginning at age 40 for women with average risk of breast cancer. ELECTRONICALLY SIGNED: Coleen Roberts M.D. on 02/22/2025 at 02:04:38 AM PT Interpreting Station ID: [id number]
== END ==
LOC: MAMMO 15:15
PROVIDERS: PCP Family Medicine; Referring Provider Family Medicine; Visit Provider Family Medicine
DX: Z12.31 Encounter for screening mammogram for malignant neoplasm of breast (principal); R92.333 Mammographic heterogeneous density, bilateral breasts; Z80.3 Family history of malignant neoplasm of breast
CPT/HCPCS: 77063; 77067

== ENCOUNTER → 2025-04-21 14:14 | Outpatient (CLI) | payer MEDICARE, OTHER, SELFPAY ==
--- NOTE | 2025-04-21 14:15 | DI.RAD.S_ITS ---
PROCEDURE: XR DEXA AXIAL SKELETON INDICATIONS: osteopenia COMPARISON: [facility], CR, XR DEXA AXIAL SKELETON, 01/25/2023, 10:35. FINDINGS: Lumbar Spine: Bone mineral density 0.974 g/cm2, T score -0.7, normal, change from previous-3.9%. Statistical significance of bone mineral density change cannot be determined due to dissimilar scan types or analysis method.. Left Femoral Neck: Bone mineral density 0.674 g/cm2, T score -1.6, osteopenia. Left Hip: Bone mineral density 0.806 g/cm2, T score -1.1, osteopenia, change from previous 0.1%. Statistical significance of bone mineral density change cannot be determined due to dissimilar scan types or analysis method.. Fracture Risk Calculation (when applicable): 10-year fracture risk of a major osteoporotic fracture 9.7 percent and of a hip fracture 1.4 percent. (T score greater or equal to -1.0 to: NORMAL) (T score from -1.1 to -2.4: OSTEOPENIA) (T score less than or equal to -2.5: OSTEOPOROSIS) IMPRESSION: Osteopenia elevates the patient's 10 year fracture risk as described. No significant change compared to the prior exam. Follow-up guidelines as follows: Osteoporosis: Consider a repeat DEXA and Vertebral Fracture Assessment (VFA) exam in 2 years or sooner if medically necessary, to reassess this patient's status. Osteopenia: Consider a repeat DEXA in 2-3 years to reassess this patient's status, or if there is a new clinical indication. Normal: Consider a repeat DEXA in 5 years or sooner, or if there is a new clinical indication. All treatment decisions require clinical judgment and consideration of individual patient factors, including patient preferences, comorbidities, previous drug use, risk factors not captured in the FRAX model (e.g., frailty, falls, vitamin D deficiency, increased bone turnover, interval significant decline in bone density ) and possible under- or over-estimation of fracture risk by FRAX. In addition, the NOF Guide recommends that FDA-approved medical therapies be considered in postmenopausal women and men age >= 50 years with a: * Hip or vertebral (clinical or morphometric) fracture * T-score of <=-2.5 at the spine or hip * Ten-year fracture probability by FRAX of >= 3% for hip fracture or >=20% for major osteoporotic fracture. Dictated by: Yuni Colmenares M.D. on 04/21/2025 at 18:55 Approved by: Yuni Colmenares M.D. on 04/21/2025 at 18:56
== END ==
PROVIDERS: PCP Family Medicine; Referring Provider Emergency Medicine; Visit Provider Emergency Medicine
DX: M85.88 Other specified disorders of bone density and structure, other site (principal)
CPT/HCPCS: 77080